=== PATIENT | male | born 1965 | race Two or more races ===

== ENCOUNTER 2019-07-04 11:13 | Inpatient (IN) | payer OTHER ==
[~2019-07-04] VITALS: Ht 170.2 cm; Wt 67.0 kg
[2019-07-04 11:23] VITALS: Ht 170.2 cm; Wt 67.0 kg
[2019-07-04 12:05] LABS: microscopic required? NO
[2019-07-04 12:17] LABS: PLATELET COUNT 314 x10^3mcL (130-400)
[2019-07-04 12:25] LABS: CALCIUM 9.6 mg/dL (8.5-10.1); CARBON DIOXIDE 26.2 mmol/L (21-32); CHLORIDE SERUM 101 mmol/L (98-107); CREATININE SERUM 0.9 mg/dL (0.7-1.3); GFR1 > 60 mL/min; GLUCOSE SERUM 175 mg/dL (74-106); POTASSIUM SERUM 4.5 mmol/L (3.5-5.1); SODIUM SERUM 139 mmol/L (136-145)
[2019-07-04 12:30] LABS: ALBUMIN 4.7 g/dL (3.4-5.0); ALKALINE PHOSPHATASE 87 U/L (46-116); ALT/SGPT 21 U/L (16-63); AST/SGOT 18 U/L (15-37); BILIRUBIN TOTAL 1.2 mg/dL (0.20-1.00); CHOLESTEROL 166 mg/dL (<200); HDL CHOLESTEROL 43 mg/dL (40-60); LIPASE 292 IU/L (73-393)
[2019-07-04 12:35] LABS: TOTAL PROTEIN, SERUM 9.2 g/dL (6.4-8.2)
[2019-07-04 12:49] LABS: UA SPECIFIC GRAVITY 1.015 (1.005-1.035); urine erythrocyte NEGATIVE (NEGATIVE)
[2019-07-04 12:52] LABS: RED CELL DISTRIBUTION WIDTH 20.7 % (11.5-14.5)
[2019-07-04 12:53] LABS: rbc morphology (normal/abnorm) ABNORMAL (NORMAL)
[2019-07-04 13:02] LABS: AMPHETAMINE QUAL UR NONE DETECTED (See below)
[2019-07-04 13:31] LABS: MAGNESIUM 1.9 mg/dL (1.8-2.4); PHOSPHOROUS 2.9 mg/dL (2.5-4.9)
[2019-07-04] MEDS ORDERED: CARVEDILOL6.25 M1 PO (13:36)
[2019-07-04] MEDS ORDERED: ASPIR 8181 MG PO (13:36)
[2019-07-04] MEDS ORDERED: GOOD SENSE OMEP20 MG PO (13:37)
[2019-07-04] MEDS ORDERED: METFORMIN500 M1 PO (13:38)
[2019-07-04] MEDS ORDERED: GLIPIZIDE XL5 M2 PO (13:39)
[2019-07-04] MEDS ORDERED: LIPI20 PO (13:39)
[2019-07-04] MEDS ORDERED: V10 PO (13:40)
[2019-07-04] MEDS ORDERED: JANUVIA50 M1 PO (13:40)
[2019-07-04 14:53] VITALS: BP 100/71
[2019-07-04 17:05] VITALS: BP 108/58
[2019-07-04 21:40] VITALS: BP 103/57
[2019-07-05 05:39] VITALS: BP 111/69
[2019-07-05 07:06] LABS: PLATELET COUNT 254 x10^3mcL (130-400)
[2019-07-05 07:18] LABS: CALCIUM 8.8 mg/dL (8.5-10.1); CARBON DIOXIDE 28.6 mmol/L (21-32); CHLORIDE SERUM 104 mmol/L (98-107); CREATININE SERUM 0.9 mg/dL (0.7-1.3); GFR1 > 60 mL/min; GLUCOSE SERUM 107 mg/dL (74-106); POTASSIUM SERUM 4.2 mmol/L (3.5-5.1); SODIUM SERUM 141 mmol/L (136-145)
[2019-07-05 08:20] LABS: RED CELL DISTRIBUTION WIDTH 20.4 % (11.5-14.5); rbc morphology (normal/abnorm) ABNORMAL (NORMAL)
[2019-07-05 08:36] VITALS: BP 106/70
[2019-07-05 12:21] VITALS: BP 108/68
[2019-07-05 17:17] VITALS: BP 115/69
[2019-07-05 20:26] VITALS: BP 116/74
[2019-07-06 04:57] VITALS: BP 114/69
[2019-07-06 06:54] LABS: BASOPHIL % 0.9 % (0-2); PLATELET COUNT 235 x10^3mcL (130-400)
[2019-07-06 07:03] LABS: CALCIUM 8.8 mg/dL (8.5-10.1); CARBON DIOXIDE 28.8 mmol/L (21-32); CHLORIDE SERUM 103 mmol/L (98-107); CREATININE SERUM 0.7 mg/dL (0.7-1.3); GFR1 > 60 mL/min; GLUCOSE SERUM 156 mg/dL (74-106); POTASSIUM SERUM 4.4 mmol/L (3.5-5.1); SODIUM SERUM 139 mmol/L (136-145)
[2019-07-06 08:25] LABS: RED CELL DISTRIBUTION WIDTH 20.3 % (11.5-14.5)
[2019-07-06 08:26] LABS: rbc morphology (normal/abnorm) ABNORMAL (NORMAL)
[2019-07-06 08:54] VITALS: BP 96/69
[2019-07-06 12:01] VITALS: BP 113/70
[2019-07-06 16:07] VITALS: BP 113/74
[2019-07-06 20:28] VITALS: BP 114/79
[2019-07-07 04:48] VITALS: BP 115/81
[2019-07-07 06:33] LABS: BASOPHIL % 1.2 % (0-2); PLATELET COUNT 243 x10^3mcL (130-400)
[2019-07-07 06:39] LABS: RED CELL DISTRIBUTION WIDTH 20.6 % (11.5-14.5)
[2019-07-07 06:48] LABS: CALCIUM 8.8 mg/dL (8.5-10.1); CARBON DIOXIDE 28.4 mmol/L (21-32); CHLORIDE SERUM 102 mmol/L (98-107); CREATININE SERUM 0.7 mg/dL (0.7-1.3); GFR1 > 60 mL/min; GLUCOSE SERUM 187 mg/dL (74-106); POTASSIUM SERUM 4.5 mmol/L (3.5-5.1); SODIUM SERUM 139 mmol/L (136-145)
[2019-07-07 08:53] VITALS: BP 111/73
[2019-07-07 13:06] VITALS: BP 101/74
[2019-07-07 16:53] VITALS: BP 124/81
== END 2019-07-07 19:44 | disposition home or self-care (01) | DRG 198 ==
LOC: ED 11:13 → DU 13:23
PROVIDERS: Emergency Medicine; ADMIT Internal Medicine
DX: R07.89 Other chest pain (principal); I25.10 Atherosclerotic heart disease of native coronary artery without angina pectoris; E11.65 Type 2 diabetes mellitus with hyperglycemia; I25.5 Ischemic cardiomyopathy; E78.5 Hyperlipidemia, unspecified; I10 Essential (primary) hypertension; I25.2 Old myocardial infarction; Z95.5 Presence of coronary angioplasty implant and graft; Z79.84 Long term (current) use of oral hypoglycemic drugs; Z23 Encounter for immunization
CPT/HCPCS: 82962; 83880; 90658; A9500; G0378; J1815; J2785; Q0092